=== PATIENT | female | born 1970 | race Caucasian/White ===

== ENCOUNTER 2018-02-10 06:34 | Day surgery (SDC) | payer OTHER, SELFPAY ==
[2018-02-07 07:50] VITALS: BMI 22.6
[2018-02-10] VITALS (8 sets, daily range): BP systolic 95–110; BP diastolic 60–78; PULSE 60–88; RESP 14–16; TEMP 35.8–36.7; O2SAT 98–100; BMI 22.6
--- NOTE | 2018-02-10 | PATH_ITS ---
[facility] Accession Number: [id number] . 01 Material submitted: . PART A: ENDOMETRIAL CURETTINGS PART B: UTERINE FIBROID . 02 Diagnosis: A. Endometrium, Curettings: Endometrial tissue with changes suggestive of exogenous hormone effects. No evidence of neoplasia or hyperplasia. . B. Designated Uterine Fibroid, Biopsies: Multiple myometrial fragments with no evidence of atypia, epithelial dysplasia or malignancy. [facility]/02/12/2018 . 02 Electronically signed: . Mayra Hidalgo MD, Pathologist NPI- [id number] . 01 Gross description: . (A) Received in formalin, labeled endometrial curettings, are multiple fragments of red-brown spongy tissue (2.8 x 2.5 x 0.5 cm in aggregate). Entirely submitted in cassettes A1 and A2. (B) Received in formalin, labeled uterine fibroid, are multiple fragments of chin-white rubbery tissue (2 grams, 2.5 x 2.2 x 0.5 cm in aggregate). Entirely submitted in cassette B1. ([id number]) /[facility] . 02 Pathologist provided ICD-10: D25.9 . 02 CPT . 851939, [id number] Performed at: 01 [facility] [address], [place], [place] [id number] MD Winston Shukla MD Phone: [phone] Performed at: 02 [facility] [address] [place], [place] [id number] MD Trey Salgado MD Phone: [phone]
[2018-02-10] MEDS: LACTATED RINGERS 1,000 ML 42 ML IV (07:47)
--- NOTE | 2018-02-10 08:03 | PM.PREOP ---
Pre-operative Note Interval Note Pre-op Check: Yes History & Physical Reviewed by Physician Changes: Yes H&P completed within 30 days and has changed as indicated here:: Treated for vaginal candidiasis over the weekend. Sx have improved s/p diflucan x 1 on 02/08.
[2018-02-10] MEDS: CEFAZOLIN 2 GM/100 ML FROZ.PIGGY IV (08:10)
--- NOTE | 2018-02-10 08:35 | SUR.OPER ---
Lithotomy on padded OR bed, head on pillow, arms secured on padded arm boards at <90 degrees abduction. Legs secured in padded yellow fins stirrups.
[2018-02-10] MEDS: BUPIVACAINE 0.5% W/ EPI (PF) VIAL 30 ML INJ (08:47)
[2018-02-10] MEDS: fentaNYL 100 MCG/2 ML INJ 50 MCG IV (10:09)
--- NOTE | 2018-02-10 10:09 | P.OP_ITS ---
Operative Date/Time/Diagnoses Date of procedure: 02/10/18 Time of procedure: 08:10 Pre-op diagnosis: Abnormal uterine bleeding, uterine fibroids Post-op diagnosis: same Procedure: Procedures Operation Date: 02/10/18 07:45 Actual Procedures Side Surgeon p Hysteroscopy, D&C w/ Endometrial Ablation and submucosal myomectomy Samanta Stapleton MD s Intrauterine Device Removal Samanta Stapleton MD Indications: The patient is a 47-year-old 3 para 3 woman here for removal of Mirena IUD, hysteroscopy, dilation curettage, endometrial ablation, and possible submucosal myomectomy. Surgery is for management of abnormal uterine bleeding and uterine fibroids. Workup for her bleeding was notable for two uterine fibroids, including 1 at the right body, adjacent to the endometrium and measuring 2.1 x 2.8 x 2.6 cm. The 2nd fibroid is in the left body and measures 1.6 x 1.2 x 1.4 cm. Preoperative endometrial biopsy was performed and benign. A Mirena intrauterine device was placed to attempt to control bleeding. However she continued to have irregular and heavy bleeding since its insertion approximately 6 months ago. Following discussion of management options thereafter she desired to have a minimally invasive procedure with hysteroscopy, Dilation and Curettage, removal of any endometrial or submucosal fibroid, and endometrial ablation. The risks, benefits, limitations, alternatives, and expectations of surgery were discussed; and the consent was reviewed and signed prior to the date of surgery. Surgeon: Samanta Stapleton [place] Operator: Roshan Harris Anesthesia Type: General and Local (GETA (LMA attempted and didn't fit well per Anesthesiologist), 0.5* * arcaine w/ epinephrine, 12 ml) Operative Notes Findings: Exam under anesthesia: Normal external female genitalia; stage 2 cystocele and rectocele noted (though exam limited by sedation and without Valsalva); bimanual exam notes an anteverted uterus, approximately 8 weeks in size; no adnexal cysts or masses palpable. Operative findings: The endometrial cavity was fully visualized, and bilateral tubal ostia were seen during the case. The right tubal ostium appeared slightly flattened and possibly stenosed. An approximately 2-3 cm submucosal fibroid was noted to impinge the cavity at the 8:00 position at the posterior, right aspect of the endometrial cavity. This was just inferior and posterior to the right tubal ostium, and concerning for possible interference with the NovaSure endometrial ablation device entering the right cornu for adequate ablation. Electrocautery and operative hysteroscopic technique was utilized to dissect the submucosal portion of the fibroid prior to the endometrial ablation. The uterine cavity sounded to 5.5 cm. The endometrial width was 4.4 cm. The endometrial ablation was performed at a power of 133 w for 44 sec. Total hysteroscopic fluid in was 3600 mL total hysteroscopic fluid out was 3350 mL. Closure Type: not applicable Specimen(s): endometrial curettings and other (Uterine fibroid) Applied: device(s) (Novasure endometrial ablation device ) Estimated blood loss (mL): 3 Procedure in detail: The patient was taken to the operating room, where general anesthesia with endotracheal tube was administered without difficulty. She was then placed in the high dorsal lithotomy position with her lower extremities in [place] stirrups. Exam under anesthesia was then performed with the findings as noted above. Perineum and vagina were then prepped and draped in a sterile fashion, and in-and-out catheterization was performed. Procedure Time-Out was performed. A sterile bivalve speculum was then placed. The anterior lip of the cervix was then grasped with a single-toothed tenaculum. Local anesthetic using 0.5% Marcaine with epinephrine was then injected at the 12:00, 2:00, 4:00, 7:00, and 10:00 positions for a paracervical block. The cervix was then serially dilated until a 7 mm, 30-degree hysteroscope could be gently advanced to the uterine fundus. Using sterile saline for distention, poor visualization was noted secondary to blood, and the hysteroscope was removed. Sharp curettage was then performed on all 4 rosales of the uterus. This tissue was sent for pathology and labeled endometrial curettings. The hysteroscope was then reintroduced, and the uterine cavity was visualized with the findings as noted above. Given the presence of the submucosal fibroid as noted above, the decision was made to proceed with an operative hysteroscopy with submucosal myomectomy prior to attempting the endometrial ablation. The operative hysteroscope with a loop electrocautery was placed onto the field, and distension medium changed to sterile sorbitol. Using electrocautery, the submucosal portion of the fibroid was dissected until the majority of the exposed tissue was removed and the endometrial cavity felt to be smoother for the ablation. The NovaSure endometrial ablation device was then placed onto the sterile field. The endometrial cavity length was measured to be 5.5 cm. The NovaSure device was then inserted into the endometrium, and the array deployed. The endometrial cavity width was determined to be 4.4 cm. Carbon dioxide gas insufflation test was then performed without complication. Ablation was then performed for 44 sec to a power of 133 W. The array was then retracted, and the device removed from the endometrial cavity. The operative hysteroscope was then replaced into the endometrial cavity, and visualization noted excellent cauterization throughout. The hysteroscope was then removed. The tenaculum was then removed, and the tenaculum sites hemostatic after gentle pressure at the sites. At this point, the procedure was deemed complete. Sponge, lap, and needle count were correct x3. There were no complications. The patient was then taken to the recovery room in stable condition. Complications: none Post-operative Condition: stable Disposition: same day surgery Plan for aftercare: Discharge to home. See patient instructions, handout.
== END 2018-02-10 11:03 | disposition home or self-care (01) ==
LOC: OR 06:36
PROVIDERS: Visit Provider Obstetrics & Gynecology
PROC: 0U5B8ZZ Destruction of Endometrium, Via Natural or Artificial Opening Endoscopic (ICD-10-PCS; CPT 58563; principal; 2018-02-10 07:45)
PROC: (CPT 58561; 2018-02-10 07:45)
DX: D25.0 Submucous leiomyoma of uterus (principal); N81.10 Cystocele, unspecified; N81.6 Rectocele; Z30.432 Encounter for removal of intrauterine contraceptive device
CPT/HCPCS: 58561; 58563; 58301; 88305; J0690; J1100; J2405; J2704; J3010